=== PATIENT | female | born 2000 | race Caucasian/White ===

== ENCOUNTER → 2022-06-30 | Outpatient (CLI) | payer BC ==
[2022-06-30 18:38] LABS: HCT 34.4 % (37.2-46.3); HGB 11.5 g/dL (12.0-15.0); MCHC 33.4 g/dL (32.0-37.0); MCV 98.9 fL (80.0-97.0); Mean Platelet Volume 9.7 fL (9.5-12.2); NRBC Per 100 WBC 0 /100 WBCS (0.0-0.0); Platelet Count 179 X 10*3/uL (140-440); RBC 3.48 X 10*6/uL (4.10-5.20); RDW 11.8 % (11.5-14.5); WBC 10.63 X 10*3/uL (4.50-10.00)
== END | disposition home or self-care (01) ==
LOC: LABWHC1 10:27
PROVIDERS: ATTEND Obstetrics & Gynecology Obstetrics
DX: Z36.9 Encounter for antenatal screening, unspecified (principal)
CPT/HCPCS: 36415; 82950; 85027

== ENCOUNTER 2022-09-12 15:10 | Inpatient (IN) | payer BC ==
[2022-09-12] MEDS: LACTATED RINGERS 1,000 ML IV SCH ×2 (15:30→16:00)
[2022-09-12] MEDS ORDERED: TERBUTALINE 1 MG/ML VIAL SQ PRN (15:34)
[2022-09-12] MEDS ORDERED: LIDOCAINE 0.5% (PF) 5 MG/ML (50 ML SDV) SQ PRN (15:34)
[2022-09-12 15:44] LABS: Basophils # (A) 0.1 k/uL (0-0.2); Basophils % (A) 0 %; Eosinophils % (A) 0 %; HGB 12.9 gm/dL (11.4-16.0); Lymphocytes # (A) 1.7 k/uL (1.0-4.8); Lymphocytes % (A) 11 %; MCH 32.5 pg (25.0-35.0); MCHC 33.9 g/dL (31.0-37.0); MCV 96.1 fL (80.0-100.0); Mean Platelet Volume 8.1; Monocytes # (A) 0.8 k/uL (0-1.0); Monocytes % (A) 5 %; Neutrophils # (A) 13.1 k/uL (1.3-7.7); Neutrophils % (A) 82 %; Platelet Count 206 k/uL (150-450); RBC 3.96 m/uL (3.80-5.40); RDW 12.1 % (11.5-15.5)
[2022-09-12] MEDS ORDERED: OXYTOCIN 30 UNITS/500 ML NS 30 UNIT in SALINE 1 500ML.BAG IV SCH ×2 (15:45→19:45)
[2022-09-12] MEDS ORDERED: ROPIVACAINE 5 MG/ML 20 ML AMPULE ONE (15:50)
[2022-09-12] MEDS ORDERED: fentaNYL (PF) 50 MCG/ML 5 ML AMP ONE (15:50)
[2022-09-12] MEDS ORDERED: SODIUM CHLORIDE 0.9% 100 ML BAG ONE (15:50)
--- NOTE | 2022-09-12 16:37 | P.HPOB ---
History of Present Illness H&P Date: 09/12/22 Chief Complaint: IUP 38 5/7 weeks, active labor This is a 22-year-old at 38-5/7 weeks, estimated due date 09/21. Patient has been receiving routine care with myself. [facility] is been complicated by diagnosis of gestational diabetes, her 1 hour GTT was greater than 200. Blood sugars have been reasonably well controlled with diet alone. Patient did undergo testing that has been normal. Ultrasound done at 36 weeks' noted estimated weight of 6 lbs. 2 oz. and ANDREA of 19, vertex presentation was confirmed at that time. Patient states she began adama around 1:30 this afternoon. Patient noted increasing rectal pressure therefore presented to the hospital. Patient denies loss of fluid. She notes good movement. On blood work shows a blood type of A+, rubella status immune, RPR is nonreactive, hepatitis B surface antigen is negative, HIV is negative, she did receive her T dap on July 26, group beta strep cultures were negative on 08/25. Review of Systems Constitutional: Denies chills, Denies fatigue, Denies fever Ears, nose, mouth and throat: Denies headache Cardiovascular: Reports leg edema Respiratory: Denies dyspnea Gastrointestinal: Denies constipation, Denies diarrhea, Denies nausea, Denies vomiting Genitourinary: Reports Medications and Allergies Allergies Allergy/AdvReac Type Severity Reaction Status Date / Time amoxicillin Allergy Nausea & Verified 09/12/22 15:33 Vomiting Exam Osteopathic Statement: *. No significant issues noted on an osteopathic structural exam other than those noted in the History and Physical/Consult. 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 heart tones are noted to be category 2 she is adama every 4 minutes. Results Result Diagrams: 09/12/22 15:20 Abnormal Lab Results - Last 24 Hours (Table) 09/12/22 Range/Units 15:20 WBC 16.0 H (3.8-10.6) k/uL Neutrophils # 13.1 H (1.3-7.7) k/uL Assessment and Plan (1) Term Current Visit: Yes Status: Acute Code(s): Z34.90 - ENCNTR FOR SUPRVSN OF NORMAL , UNSP, UNSP TRIMESTER SNOMED Code(s): 51899714 (2) GDM (gestational diabetes mellitus), class A1 Current Visit: Yes Status: Acute Code(s): O24.410 - GESTATIONAL DIABETES MELLITUS IN , DIET CONTROLLED SNOMED Code(s): 50758886 (3) Active labor Current Visit: Yes Status: Acute Code(s): STW9448 - SNOMED Code(s): 492786334 Plan: 22-year-old at 38-5/7 weeks that presents in active labor. Patient did request epidural upon admission. Epidural was placed by the anesthesia department. Patient is currently comfortable. Amniotomy was performed and copious clear fluid was obtained. Contractions are noted to be to 4 minutes Will augment with Pitocin. Anticipate spontaneous vaginal delivery.
[2022-09-12] MEDS ORDERED: HYDROCORTISONE 2.5% RECTAL CREAM 30 GM TUBE RECTAL PRN ×2 (19:34→19:42)
[2022-09-12] MEDS ORDERED: diphenhydrAMINE 50 MG/ML 1 ML VIAL IVP PRN ×4 (19:34→19:42)
[2022-09-12] MEDS ORDERED: ZOLPIDEM 5 MG TAB PO PRN ×2 (19:34→19:42)
[2022-09-12] MEDS ORDERED: diphenhydrAMINE 50 MG CAP PO PRN ×2 (19:34→19:42)
[2022-09-12] MEDS ORDERED: BENZOCAINE/MENTHOL SPRAY 1 GM/SPRAY AEROSOL TOPICAL PRN ×2 (19:34→19:42)
[2022-09-12] MEDS ORDERED: diphenhydrAMINE 25 MG CAP PO PRN ×2 (19:34→19:42)
[2022-09-12] MEDS ORDERED: SIMETHICONE 80 MG CHEWABLE PO PRN ×2 (19:34→19:42)
[2022-09-12] MEDS ORDERED: LANOLIN CREAM 5 GM TUBE TOPICAL PRN ×2 (19:34→19:42)
[2022-09-12] MEDS ORDERED: SENNOSIDES-DOCUSATE SODIUM 1 EACH TAB PO SCH (20:00)
[2022-09-12] MEDS: IBUPROFEN 600 MG TAB PO SCH (23:37)
[2022-09-13] MEDS: SENNOSIDES-DOCUSATE SODIUM 1 EACH TAB PO SCH ×3 (00:40→20:49)
[2022-09-13] MEDS: IBUPROFEN 600 MG TAB PO SCH ×4 (05:05→20:48)
[2022-09-13 05:28] LABS: Basophils % (A) 0 %; Eosinophils % (A) 0 %; HCT 29.1 % (34.0-46.0); HGB 10.1 gm/dL (11.4-16.0); Lymphocytes # (A) 1.7 k/uL (1.0-4.8); Lymphocytes % (A) 10 %; MCH 33.4 pg (25.0-35.0); MCHC 34.6 g/dL (31.0-37.0); MCV 96.5 fL (80.0-100.0); Mean Platelet Volume 8.5; Monocytes # (A) 0.9 k/uL (0-1.0); Monocytes % (A) 5 %; Neutrophils # (A) 14.5 k/uL (1.3-7.7); Neutrophils % (A) 83 %; Platelet Count 152 k/uL (150-450); RBC 3.02 m/uL (3.80-5.40); RDW 12.2 % (11.5-15.5); WBC 17.4 k/uL (3.8-10.6)
[2022-09-13] MEDS: PRENATAL VIT-IRON-FOLIC ACID 1 EACH TABLET PO SCH (08:35)
[2022-09-13] MEDS: ACETAMINOPHEN TAB 325 MG TAB PO PRN ×3 (08:35→23:10)
--- NOTE | 2022-09-13 11:27 | P.PNOBGVD ---
Subjective - Subjective Principal diagnosis: PPD 1 Interval history: Patient is feeling well . she states her lochia is moderate. Pain is well controlled. she is she is ambulating and voiding without difficulty. Patient reports: Reports appetite normal, Reports voiding normally, Reports pain well controlled, Reports ambulating normally [place]: doing well, nursing well Objective - Latest Vital Signs Latest vital signs: Vital Signs Temp Pulse Resp BP Pulse Ox 09/13/22 08:00 97.4 F L 60 16 113/67 09/13/22 04:00 98.7 F 66 16 115/67 97 09/13/22 00:00 98.6 F 75 18 120/52 09/12/22 21:15 98.5 F 75 16 114/66 09/12/22 20:45 83 16 109/56 09/12/22 20:15 79 15 132/61 09/12/22 19:45 98.4 F 71 15 138/61 09/12/22 19:30 98.4 F 112 H 15 156/66 09/12/22 19:15 90 16 133/53 09/12/22 15:32 98.6 F 72 16 132/75 Intake and Output 09/12/22 09/13/22 09/13/22 22:59 06:59 14:59 Intake Total 480 Output Total 380 Balance 100 Intake: Oral 480 Output: Urine 200 Straight 200 Output, Quantitative 180 Blood Loss Other: # Voids 2 1 Weight 81.647 kg - Exam Extremities: Present: edema Abdomen: Present: normal appearance, soft Uterus: Present: normal, firm - Labs Labs: Abnormal Lab Results - Last 24 Hours (Table) 09/12/22 09/13/22 Range/Units 15:20 05:07 WBC 16.0 H 17.4 H (3.8-10.6) k/uL RBC 3.02 L (3.80-5.40) m/uL Hgb 10.1 L (11.4-16.0) gm/dL Hct 29.1 L (34.0-46.0) % Neutrophils # 13.1 H 14.5 H (1.3-7.7) k/uL Assessment and Plan (1) Term Current Visit: Yes Status: Acute Code(s): Z34.90 - ENCNTR FOR SUPRVSN OF NORMAL , UNSP, UNSP TRIMESTER SNOMED Code(s): 56628845 (2) GDM (gestational diabetes mellitus), class A1 Current Visit: Yes Status: Acute Code(s): O24.410 - GESTATIONAL DIABETES MELLITUS IN , DIET CONTROLLED SNOMED Code(s): 36058118 (3) Active labor Current Visit: Yes Status: Acute Code(s): ZRA5547 - SNOMED Code(s): 954650900 (4) Status post vaginal delivery Current Visit: Yes Status: Acute Code(s): LOS6767 - SNOMED Code(s): 810286539 (5) Anal sphincter tear w/o 3rd deg perineal laceration, delivered Current Visit: Yes Status: Acute Code(s): O70.4 - ANAL SPHINCTER TEAR COMP DEL, NOT ASSOC W THIRD DEGREE LAC SNOMED Code(s): 935016785 Plan: doing well , continue routine post care. Anticipate discharge home tomorrow
[2022-09-13 21:46] VITALS: RESP 18
[2022-09-14] MEDS: IBUPROFEN 600 MG TAB PO SCH ×2 (03:54→08:26)
[2022-09-14 03:57] VITALS: TEMP 98
[2022-09-14] MEDS: SENNOSIDES-DOCUSATE SODIUM 1 EACH TAB PO SCH (08:24)
[2022-09-14 08:50] VITALS: BP 123/76; PULSE 92
[2022-09-14] MEDS: PRENATAL VIT-IRON-FOLIC ACID 1 EACH TABLET PO SCH (10:09)
--- NOTE | 2022-09-14 13:47 | P.DS ---
Providers Date of admission: 09/12/22 15:10 Expected date of discharge: 09/14/22 Attending physician: Liseth Schultz Primary care physician: Stated None - Discharge Diagnosis(es) (1) Term Current Visit: Yes Status: Acute (2) GDM (gestational diabetes mellitus), class A1 Current Visit: Yes Status: Acute (3) Active labor Current Visit: Yes Status: Acute (4) Status post vaginal delivery Current Visit: Yes Status: Acute (5) Anal sphincter tear w/o 3rd deg perineal laceration, delivered Current Visit: Yes Status: Acute Hospital Course: 22-year-old G1 now P1 status post normal spontaneous vaginal delivery. Patient presented to labor and delivery with regular painful contractions on 09/12. Patient was noted to be 5 cm and was admitted to labor and delivery. Patient had been receiving routine care which was complex by diagnosis of gestational diabetes for which she was well controlled with diet. Patient underwent amniotomy where clear fluid was obtained. Patient did request epidural placement soon after admission. This was placed without difficulty by the anesthesia department. Patient made quick progress were complete began pushing. Patient delivered a viable male infant. she did sustan a third degree laceration extending to the anal sphincter. She has done well . On this day 2 she is ambulating and voiding without difficulty, she noted moderate lochia. is going well. Plan discharge home today on PPD 2. Patient Condition at Discharge: Good Plan - Discharge Summary New Discharge Prescriptions: No Action Aspirin 81 mg PO DAILY Vit No.179/Iron/Folic [ Tablet] 1 tablet PO DAILY Discharge Medication List Aspirin 81 mg PO DAILY 09/12/22 [History] Vit No.179/Iron/Folic [ Tablet] 1 tablet PO DAILY 09/12/22 [History] Follow up Appointment(s)/Referral(s): Liseth Schultz DO [Doctor of Osteopathic Medicine] - 4 Weeks Patient Instructions/Handouts: Vaginal Delivery (GEN), Vaginal Delivery (DC) Activity/Diet/Wound Care/Special Instructions: no tub baths or intercourse until 6 weeks PP. she is to fu in 4 weeks for routine PP check. stool softners are recommended given the anal sphincter teat. bleeding precautions are reviewed Discharge Disposition: HOME SELF-CARE
--- NOTE | 2022-09-16 10:18 | P.PROBDLV ---
Vaginal Delivery Note - . Vaginal Delivery Note: 22-year-old at 38-5/7 weeks that presented to labor and delivery with complaints of regular painful contractions. Patient was deemed to be in active labor and noted to be 5 cm dilated. Patient quickly requested epidural upon admission. Epidural was placed without difficulty by the anesthesia department. Patient progressed through labor, amniotomy was performed and clear fluid was obtained. Patient progressed to complete began pushing, with excellent mat ernal effort she brought the down to a presentation. With further pushing she had a normal spontaneous vaginal delivery of a viable male at 1858, weight of 6 lbs. 15 oz., Apgars of 9 and 9 at one and 5 minutes respectively. After two-minute delayed the umbilical cord was doubly clamped and cut and the placenta was delivered spontaneously intact with a three-vessel cord being noted. On inspection the patient's vaginal vault a right lateral sulcus laceration was noted in addition to a partial rectal sphincter laceration. The laceration site was injected with lidocaine and started at the apex of the lateral sulcus laceration in a running locked fashion, this continued toward the hymenal ring. A rectal exam was performed and the sphintcer was repaired with 3-0 Rapide. Additional rectal exam was performed and it was noted to be intact after repair was complete.. The bulbocavernosus muscle was then reapproximated and the perineum was closed in a running fashion. Uterus is noted be firm and below the umbilicus, the bladder was drained for partially 100 mL of clear yellow urine. All counts were noted to be correct 2 at the end of the repair Patient and infant tolerated delivery well and are resting comfortably
== END 2022-09-14 14:35 | disposition home or self-care (01) | DRG 768 ==
LOC: 4FBP 15:10
PROVIDERS: ADMIT Obstetrics & Gynecology Obstetrics; ATTEND Obstetrics & Gynecology Obstetrics
PROC: 10907ZC Drainage of Amniotic Fluid, Therapeutic from Products of Conception, Via Natural or Artificial Opening (ICD-10-PCS; principal; 2022-09-12)
PROC: 0KQM0ZZ Repair Perineum Muscle, Open Approach (ICD-10-PCS; principal; 2022-09-12)
PROC: 0DQR0ZZ Repair Anal Sphincter, Open Approach (ICD-10-PCS; principal; 2022-09-12)
PROC: 10E0XZZ Delivery of Products of Conception, External Approach (ICD-10-PCS; principal; 2022-09-12)
PROC: 4A0HXCZ Measurement of Products of Conception, Cardiac Rate, External Approach (ICD-10-PCS; principal; 2022-09-12)
DX: O24.429 Gestational diabetes mellitus in childbirth, unspecified control (principal); Z37.0 Single live birth; O70.20 Third degree perineal laceration during delivery, unspecified; O76 Abnormality in fetal heart rate and rhythm complicating labor and delivery; Z3A.38 38 weeks gestation of pregnancy; Z88.1 Allergy status to other antibiotic agents
CPT/HCPCS: 85025; 86850; 86900; 86901

== ENCOUNTER 2024-04-05 06:00 | Inpatient (IN) | payer BC ==
[2024-04-05 07:02] VITALS: RESP 16
[2024-04-05 07:07] LABS: Glucose,Whole Blood 86 mg/dL (70-110)
[2024-04-05 07:32] LABS: Basophils % (A) 0 %; Eosinophils # (A) 0.1 k/uL (0-0.7); Eosinophils % (A) 2 %; HCT 37.3 % (34.0-46.0); HGB 12.6 gm/dL (11.4-16.0); Lymphocytes # (A) 1.5 k/uL (1.0-4.8); Lymphocytes % (A) 18 %; MCH 33.4 pg (25.0-35.0); MCHC 33.7 g/dL (31.0-37.0); MCV 99.2 fL (80.0-100.0); Mean Platelet Volume 6.8; Monocytes # (A) 0.4 k/uL (0-1.0); Monocytes % (A) 5 %; Neutrophils # (A) 5.9 k/uL (1.3-7.7); Neutrophils % (A) 72 %; Platelet Count 266 k/uL (150-450); RBC 3.76 m/uL (3.80-5.40); RDW 12.4 % (11.5-15.5); WBC 8.2 k/uL (3.8-10.6)
[2024-04-05] MEDS: LACTATED RINGERS 1,000 ML IV SCH (08:11)
[2024-04-05] MEDS: miSOPROStoL 200 MCG TAB PO STA (08:46)
[2024-04-05] MEDS: NALBUPHINE 10 MG/ML (10 ML MDV) IV PRN (10:03)
[2024-04-05 10:58] LABS: Partial Thromboplastin Time 24.1 sec (22.0-30.0); Prothrombin Time 10.8 sec (10.0-12.5)
[2024-04-05] MEDS ORDERED: fentaNYL (PF) 50 MCG/ML 5 ML AMP ONE (11:39)
[2024-04-05] MEDS ORDERED: SODIUM CHLORIDE 0.9% 250 ML BAG ONE (11:39)
[2024-04-05] MEDS ORDERED: ROPIVACAINE 5 MG/ML 30 ML VIAL ONE (11:39)
[2024-04-05] MEDS: OXYTOCIN 30 UNITS/500 ML NS 30 UNIT in SALINE 1 500ML.BAG IV SCH (12:19)
[2024-04-05 12:34] VITALS: TEMP 97.5
[2024-04-05] MEDS ORDERED: BENZOCAINE/MENTHOL SPRAY 1 GM/SPRAY AEROSOL TOPICAL PRN (13:48)
[2024-04-05] MEDS ORDERED: SIMETHICONE 80 MG CHEWABLE PO PRN (13:48)
[2024-04-05] MEDS ORDERED: HYDROCORTISONE 2.5% RECTAL CREAM 30 GM TUBE RECTAL PRN (13:48)
[2024-04-05] MEDS ORDERED: LANOLIN CREAM 1 GM TUBE TOPICAL PRN (13:48)
[2024-04-05] MEDS ORDERED: diphenhydrAMINE 50 MG/ML 1 ML VIAL IVP PRN ×2 (13:48)
[2024-04-05] MEDS ORDERED: diphenhydrAMINE 25 MG CAP PO PRN (13:48)
[2024-04-05] MEDS ORDERED: ZOLPIDEM 5 MG TAB PO PRN (13:48)
[2024-04-05] MEDS ORDERED: diphenhydrAMINE 50 MG CAP PO PRN (13:48)
--- NOTE | 2024-04-05 13:52 | P.HPOB ---
History of Present Illness H&P Date: 04/05/24 Chief Complaint: IUFD at 24 weeks 23-year-old G2, P1 at 24 weeks of gestation that presented to her routine OB visit yesterday with complaints of decreased movement. Patient states she last bowel movement approximately 2 weeks ago. Patient underwent ultrasound evaluation with no heart tones appreciated, vertex presentation, weight of 1 pound 0 ounces estimated weight of 21 weeks. Patient has been receiving routine care which has been essentially uncomplicated. Patient has a prior history of normal spontaneous vaginal delivery at 38+ weeks. Review of Systems Constitutional: Denies chills, Denies fatigue, Denies fever Ears, nose, mouth and throat: Denies headache Cardiovascular: Denies leg edema Respiratory: Denies dyspnea Gastrointestinal: Denies nausea, Denies vomiting Genitourinary: Reports Past Medical History Past Medical History: No Reported History Additional Past Medical History / Comment(s): GDM History of Any Multi-Drug Resistant Organisms: None Reported Past Surgical History: No Surgical Hx Reported Past Anesthesia/Blood Transfusion Reactions: No Reported Reaction Past Psychological History: No Psychological Hx Reported Smoking Status: Never smoker Past Alcohol Use History: None Reported Past Drug Use History: None Reported - Past Family History Mother Family Medical History: No Reported History Medications and Allergies Home Medications Medication Instructions Recorded Confirmed Type Aspirin 81 mg PO DAILY 09/12/22 04/05/24 History Vit No.179/Iron/Folic 1 tablet PO DAILY 09/12/22 04/05/24 History [ Tablet] Allergies Allergy/AdvReac Type Severity Reaction Status Date / Time amoxicillin Allergy Nausea & Verified 09/12/22 15:33 Vomiting erythromycin base Allergy Rash/Hives Verified 09/12/22 16:51 [From E-Mycin] Exam Osteopathic Statement: *. No significant issues noted on an osteopathic structural exam other than those noted in the History and Physical/Consult. Vital Signs Temp Pulse Resp BP Pulse Ox 04/05/24 12:56 75 16 90/54 04/05/24 12:41 74 16 110/53 04/05/24 12:26 97.5 F L 92 16 111/53 04/05/24 06:53 97.7 F 65 16 124/65 100 Intake and Output 04/04/24 04/05/24 04/05/24 22:59 06:59 14:59 Output Total 500 Balance -500 Output: Urine 300 Output, Estimated Blood 200 Loss Amount Other: Weight 69.4 kg Marked physical exam was performed at admission this is a well-nourished well- developed female, very tearful this morning. Breathing is nonlabored, abdomen is noted to be soft and nontender, gravid, no lower extremity swelling is appreciated. On cervical exam she is noted to be 1/50/high station. No parts are appreciated. Results Result Diagrams: 04/05/24 07:15 Abnormal Lab Results - Last 24 Hours (Table) 04/05/24 Range/Units 07:15 RBC 3.76 L (3.80-5.40) m/uL Assessment and Plan (1) demise Current Visit: Yes Status: Acute Code(s): OPH3155 - SNOMED Code(s): 190721971 (2) 24 weeks gestation of Current Visit: Yes Status: Acute Code(s): Z3A.24 - 24 WEEKS GESTATION OF SNOMED Code(s): 366180567 Plan: 23-year-old G2, P1 at 24 weeks of gestation with no heart tones appreciated ultrasound yesterday at routine visit. Patient is admitted to labor and delivery for Cytotec induction of labor. Patient is counseled on options for analgesia and she will consider.
--- NOTE | 2024-04-05 13:58 | P.PROBDLV ---
Vaginal Delivery Note - . Vaginal Delivery Note: 23-year-old G2, P1 at 24 weeks of gestation presented for induction of labor, demise at 24 weeks. Patient took 400 mcg of Cytotec p.o. this morning. Patient had noted increase cramping and did request epidural. Patient quickly noted increased vaginal pressure and began pushing. Patient delivered a nonviable male infant at 12:13, 1 pound 1.6 ounces, umbilical cord was doubly clamped and cut and infant was taken by attending RN. The placenta was delivered spontaneously intact with maternal pushing. Uterus was noted to be firm and below the umbilicus no vaginal lacerations were appreciated upon inspection.
[2024-04-05 14:34] VITALS: BP 101/56; PULSE 53
--- NOTE | 2024-04-05 16:40 | P.DS ---
Providers Date of admission: 04/05/24 06:49 Expected date of discharge: 04/05/24 Attending physician: Liseth Schultz Primary care physician: Stated None - Discharge Diagnosis(es) (1) demise Current Visit: Yes Status: Acute (2) 24 weeks gestation of Current Visit: Yes Status: Acute (3) Status post vaginal delivery Current Visit: No Status: Acute Hospital Course: 23-year-old 2 now para 1-1-0-1 at 24 weeks of gestation that presents to labor and delivery for induction of labor secondary to demise. Patient was admitted to labor and delivery and Cytotec induction of labor was begun. 40 0 mcg was given orally. Patient noted increased cramping and did request epidural. Soon after epidural patient was noted to have rectal pressure. Patient began pushing and had a vaginal delivery of a 24-week intrauterine demise. Patient has done well . Patient is approximately 4 hours bleeding is appropriate given state. She denies pain. She is ambulating and voiding without difficulty. She wishes discharge home. Patient Condition at Discharge: Good Plan - Discharge Summary New Discharge Prescriptions: No Action Aspirin 81 mg PO DAILY Vit No.179/Iron/Folic [ Tablet] 1 tablet PO DAILY Discharge Medication List Aspirin 81 mg PO DAILY 09/12/22 [History] Vit No.179/Iron/Folic [ Tablet] 1 tablet PO DAILY 09/12/22 [History] Follow up Appointment(s)/Referral(s): Liseth Schultz DO [Doctor of Osteopathic Medicine] - 2 Weeks Patient Instructions/Handouts: Vaginal Delivery (DC) Discharge Disposition: HOME SELF-CARE
[2024-04-05] MEDS: IBUPROFEN 800 MG TAB PO SCH (16:58)
[2024-04-05] MEDS: ACETAMINOPHEN TAB 500 MG TAB PO SCH (16:58)
[2024-04-05] MEDS ORDERED: SENNOSIDES-DOCUSATE SODIUM 1 EACH TAB PO SCH (20:00)
== END 2024-04-05 16:50 | disposition home or self-care (01) | DRG 807 ==
LOC: 4FBP 06:49
PROVIDERS: ADMIT Obstetrics & Gynecology Obstetrics; ATTEND Obstetrics & Gynecology Obstetrics
PROC: 3E0DXGC Introduction of Other Therapeutic Substance into Mouth and Pharynx, External Approach (ICD-10-PCS; principal; 2024-04-05)
PROC: 10E0XZZ Delivery of Products of Conception, External Approach (ICD-10-PCS; principal; 2024-04-05)
DX: O36.4XX0 Maternal care for intrauterine death, not applicable or unspecified (principal); Z37.1 Single stillbirth; Z3A.24 24 weeks gestation of pregnancy; Z79.82 Long term (current) use of aspirin; Z86.32 Personal history of gestational diabetes; Z88.1 Allergy status to other antibiotic agents; Z88.0 Allergy status to penicillin
CPT/HCPCS: 85025; 85610; 85730; 86850; 86900; 86901; 88305

== ENCOUNTER 2025-01-21 10:05 | Outpatient (CLI) | payer BC ==
[2025-01-21 10:44] VITALS: BP 118/70; PULSE 76; RESP 16; TEMP 98.6
--- NOTE | 2025-02-21 09:58 | P.MSEPDOC ---
Presenting Problems - Arrival Data Date of Arrival on Unit: 01/21/25 Time of Arrival on Unit: 10:05 Mode of Transport: Ambulatory - Complaint OB-Reason for Admission/Chief Complaint: Decreased Movement Medical History - Information : 4 Para: 1 Term: 1 : 0 Abortions: Spontaneous or Elective: 2 Number of Living Children: 1 - Gestational Age Gestational Age by BAM (wks/days): 28 Weeks and 5 Days Review of Systems - Review of Systems Constitutional: No problems Breast: No problems ENT: No problems Cardiovascular: No problems Respiratory: No problems Gastrointestinal: No problems Genitourinary: No problems Musculoskeletal: No problems Neurological: No problems Skin: No problems Vital Signs - Temperature Temperature: 98.6 F Temperature Source: Temporal Artery Scan - Pulse Right Brachial Pulse Rate: 76 Pulse Assessment Method: Automatic Cuff - Respirations Respiratory Rate: 16 Oxygen Delivery Method: Room Air O2 Sat by Pulse Oximetry: 99 - Blood Pressure Right Arm Blood Pressure: 118/70 Blood Pressure Mean: 86 Blood Pressure Source: Automatic Cuff Physician Notification - Physician Notified Physician Notified Date: 01/21/25 Physician Notified Time: 10:30 Physician: Liseth Schultz New Order Received: Yes - Notification Comment Comment: Dr. Schultz called and given report on pt. Pt c/o of decreased FM. VS WNL. Reactive NST. movement noted per pt, audibly, and per palpation. Orders received to educate pt on kicks counts and d/c pt to home. Maternal Triage Index - Urgent/Priority 2 Urgent Priority 2: Yes Provider Notified: Liseth Schultz Provider Notified Time: 10:30 Criteria Met for Priority 2: Pt c/o of decreased movement. Disposition - Disposition OB Disposition: Discharge to home Discharge Date: 01/21/25 Discharge Time: 10:37 I agree with the RN Medical Screening Exam: Yes Case reviewed; plan agreed upon as documented in EMR&OBIX.: Yes Diagnosis: DECREASED MOVEMENTS, THIRD TRIMESTER, FETUS 1
== END 2025-01-21 10:37 | disposition home or self-care (01) ==
LOC: FBPOP 10:05
PROVIDERS: ATTEND Obstetrics & Gynecology Obstetrics
DX: O36.8131 Decreased fetal movements, third trimester, fetus 1 (principal); Z3A.28 28 weeks gestation of pregnancy; Z88.0 Allergy status to penicillin; Z88.1 Allergy status to other antibiotic agents
CPT/HCPCS: 59025; 99213